=== PATIENT | male | born 1960 | race Caucasian/White ===

== ENCOUNTER 2016-08-12 16:21 | Emergency (ER) | payer SELFPAY ==
[2016-08-12] MEDS ORDERED: ONDANSETRON 4 MG/2 ML VIAL IVP STA (17:13)
[2016-08-12] MEDS ORDERED: MORPHINE 2 MG/ML SYRINGE IVP STA (17:13)
[2016-08-12] MEDS ORDERED: MORPHINE 2 MG/ML SYRINGE ONE (17:24)
[2016-08-12] MEDS ORDERED: ONDANSETRON 4 MG/2 ML VIAL ONE (17:24)
[2016-08-12] MEDS ORDERED: SODIUM CHLORIDE 0.9% 1,000 ML IV ONE (18:49)
== END 2016-08-12 20:27 | disposition home or self-care (01) ==
DX: R11.2 Nausea with vomiting, unspecified (principal); G44.209 Tension-type headache, unspecified, not intractable; R73.9 Hyperglycemia, unspecified; R03.0 Elevated blood-pressure reading, without diagnosis of hypertension; F17.200 Nicotine dependence, unspecified, uncomplicated